=== PATIENT | male | born 1965 | race Caucasian/White ===

== ENCOUNTER 2020-05-02 10:55 | Emergency (ER) | payer OTHER ==
[~2020-05-02] VITALS: Ht 188 cm; Wt 111.1 kg
[2020-05-02] MEDS ORDERED: ASPirin 81 mg TAB PO ONE (11:15)
[2020-05-02] MEDS ORDERED: LORazepam 2MG/ML-1ML VIAL IV ONE (11:15)
[2020-05-02 11:40] LABS: Basophils # (auto) 0.1 10 ^3/uL (0-0.2); Basophils % (auto) 0.4 % (0.0-2.0); Eosinophils # (auto) 0 10 ^3/uL (0-0.8); Hematocrit 44.2 % (41.0-53.0); Hemoglobin 15.2 g/dL (13.5-17.5); Lymphocytes # (auto) 0.6 10 ^3/uL (0.4-5.4); Mean Corpuscular Hemoglobin 31.5 pg (28.0-32.0); Mean Corpuscular Hgb Conc. 34.4 g/dL (32.0-36.0); Mean Corpuscular Volume 91.5 fL (80.0-100.0); Monocytes # (auto) 0.9 10 ^3/uL (0-1.3); Monocytes % (auto) 5.9 % (0.0-12.0); Neutrophils # (auto) 13.7 10 ^3/uL (1.6-8.6); Neutrophils % (auto) 89.7 % (37.0-80.0); Nucleated Red Blood Cells % 0.2 %; Platelet Count (auto) 226 10^3/uL (140-450); Red Blood Cells 4.83 10^6/uL (4.5-5.90); Red Cell Distribution Width 13.7 % (11.8-14.3); White Blood Cell 15.2 10^3/uL (4.4-10.8)
[2020-05-02 12:07] LABS: Anion Gap 6 (5-15); Blood Urea Nitrogen 12 mg/dL (7-18); Calcium 9.3 mg/dL (8.5-10.1); Carbon Dioxide 25 mmol/L (21-32); Chloride 102 mmol/L (98-107); Glucose 98 mg/dL (74-106); Magnesium 2.5 mg/dL (1.6-2.6); Potassium 4.4 mmol/L (3.5-5.1); Sodium 133 mmol/L (136-145)
[2020-05-02 12:14] LABS: Alanine Aminotransferase 49 U/L (16-61); Alkaline Phosphatase 70 U/L (45-117); Aspartate Aminotransferase 33 U/L (15-37); BUN/Creatinine Ratio 10.3; Bilirubin, Total 0.8 mg/dL (0.2-1.0); GFR African American 83 mL/min; GFR Non-African American 69 mL/min; Total Protein 7.8 g/dL (6.4-8.2)
[2020-05-02 14:05] VITALS: BP 124/71
== END 2020-05-02 14:06 | disposition home or self-care (01) ==
LOC: ER 10:55
DX: R07.89 Other chest pain (principal); F41.9 Anxiety disorder, unspecified; D72.829 Elevated white blood cell count, unspecified
CPT/HCPCS: 36415; 71045; 80053; 83735; 84484; 85025; 93005; 96374; 99285; J2060